=== PATIENT | male | born 1965 | race African-American/Black ===

== ENCOUNTER 2016-08-17 09:22 | Emergency (ER) | payer MEDICAID, OTHER ==
[~2016-08-17] VITALS: Ht 195.6 cm; Wt 129.3 kg
[2016-08-17 09:27] VITALS: BP 162/115
--- NOTE | 2016-08-17 09:28 | NUR ---
Patient to bed 03 via wheelchair.
--- NOTE | 2016-08-17 09:30 | NUR ---
50/M BIB MOTHER C/O PAIN ALL OF BODY ;PT STATES PT MISSED PCP APPOINTMENT FOR PAIN MEDICATION & PT REMOVED [facility] CATH LAST NIGHT 8 PM & PT HAS URINE INCONTINENT. HX OF HTN, PARAPLEGIA.PT DENIES N/V/D; SKIN IS PINK/WARM/DRY; AAOX4 WITH EVEN AND PARAPLEGIA AMBULATES W/W/C ; LUNGS CLEAR BL; HR EVEN AND REGULAR; PT DENIES ANY FEVER, CP, SOB, OR COUGH AT THIS TIME; PATIENT STATES PAIN OF 10/10 AT THIS TIME; VSS; PATIENT POSITIONED FOR COMFORT; HOB ELEVATED; BEDRAILS UP X2; BED DOWN. ER MD MADE AWARE OF PT STATUS.
--- NOTE | 2016-08-17 09:35 | NUR ---
Dr. Reich evaluating patient at bedside.
[2016-08-17 10:05] VITALS: BP 143/85
--- NOTE | 2016-08-17 10:05 | NUR ---
Note bethone in EDM - 08/17/16 at 1011 by [facility] Patient discharged with v/s stable. Written and verbal after care instructions given and explained. Patient alert, oriented and verbalized understanding of instructions. Wheel Chair Assisted with to car. All questions addressed prior to discharge. ID band removed. Patient advised to follow up with PMD. Rx of VALIUM & NORCO given. Patient educated on indication of medication including possible reaction and side effects. Opportunity to ask questions provided and answered.
--- NOTE | 2016-08-17 10:05 | NUR ---
Note bethone in EDM - 08/17/16 at 1012 by [facility] Patient discharged with v/s stable. Written and verbal after care instructions given and explained. Patient alert, oriented and verbalized understanding of instructions. Wheel Chair Assisted with to car. All questions addressed prior to discharge. ID band removed. Patient advised to follow up with PMD. Rx of VALIUM & NORCO given. Patient educated on indication of medication including possible reaction and side effects. Opportunity to ask questions provided and answered.
== END 2016-08-17 10:05 | disposition home or self-care (01) ==
LOC: MED 09:28
DX: M54.9 Dorsalgia, unspecified (principal); G89.29 Other chronic pain; I10 Essential (primary) hypertension; Z87.828 Personal history of other (healed) physical injury and trauma; Z98.890 Other specified postprocedural states
CPT/HCPCS: 99283; C1758